=== PATIENT | female | born 1980 | race Asian ===

== ENCOUNTER → 2024-03-15 11:05 | Outpatient (REF) | payer OTHER, SELFPAY ==
[2024-03-15 11:52] LABS: % Basophils 0.5 % (0-2); % Eosinophils 2.4 % (0-6); % Immature Granulocytes 0.3 % (0-0.5); % Lymphocytes 25.7 % (20.5-51.1); % Monocytes 9.2 % (1.7-9.3); % Neutrophils 61.9 % (42.2-75.2); Absolute Eosinophils 0.1 10^3/uL (0-0.7); Absolute Lymphocytes 1.5 10^3/uL (1.2-3.4); Absolute Monocytes 0.5 10^3/uL (0.1-0.6); Absolute Neutrophils 3.6 10^3/uL (1.4-6.5); Hemoglobin 13.7 g/dL (12.0-16.0); Mean Corp Hgb Conc. 32.6 g/dL (33.0-37.0); Mean Corpuscular Hgb 28.5 pg (27.0-31.0); Mean Corpuscular Volume 87.5 fL (81.0-99.0); Mean Platelet Volume 9.5 fL (7.4-10.4); Nucleated Red Blood Cells % 0 %; Platelet Count 255 10^3/uL (130-400); Red Cell Dist. Width 12.8 % (11.5-14.5); White Blood Cell Count 5.8 10^3/uL (4.8-10.8)
[2024-03-15 12:55] LABS: ALT (SGPT) 16 U/L (0-35); AST (SGOT) 21 U/L (14-36); Albumin 4.8 g/dl (3.5-5.0); Alkaline Phosphatase 45 U/L (38-126); Blood Urea Nitrogen 11 mg/dl (7-17); Calcium 9.8 mg/dl (8.4-10.2); Carbon Dioxide 25 mmol/L (22-30); Chloride 105 mmol/L (98-107); Glucose 73 mg/dl (70-99); Potassium 4.8 mmol/L (3.5-5.1); Sodium 136 mmol/L (135-145); Total Bilirubin 0.6 mg/dl (0.2-1.3); Total Protein 7.4 g/dl (6.3-8.2); eGFR > 60.00
[2024-03-15 13:05] LABS: Vitamin D, 25-OH*** 23.2 ng/mL (30-80)
[2024-03-15 13:19] LABS: TSH Reflex To Free T4 2.34 uIU/ml (0.47-4.68)
[2024-03-15 13:23] LABS: Ferritin 46.2 ng/ml (6.24-137)
[2024-03-18 01:44] LABS: IgA 224 mg/dl (70-400)
[2024-03-18 06:39] LABS: Endomysial IgA Antibody Titer <1:10 (<1:10)
== END ==
LOC: RAD 11:05
PROVIDERS: ATTENDING PHYSICIAN Student in an Organized Health Care Education/Training Program
DX: R14.0 Abdominal distension (gaseous) (principal)
CPT/HCPCS: 36415; 74019; 80053; 82306; 82728; 82784; 83516; 83735; 84443; 85025; 86231

== ENCOUNTER → 2024-05-14 12:16 | Outpatient (REF) | payer OTHER, SELFPAY | LOC: RAD 12:16 | PROVIDERS: ATTENDING PHYSICIAN Student in an Organized Health Care Education/Training Program | DX: K59.01 Slow transit constipation (principal) | CPT/HCPCS: 74019 ==

== ENCOUNTER → 2024-05-22 13:41 | Outpatient (REF) | payer OTHER, SELFPAY | LOC: CLAB 13:41 | PROVIDERS: ATTENDING PHYSICIAN Obstetrics & Gynecology Gynecology | DX: N76.0 Acute vaginitis (principal) | CPT/HCPCS: 87070; 87102 ==

== ENCOUNTER → 2024-07-11 16:15 | Outpatient (REF) | payer OTHER, SELFPAY ==
[2024-07-11 16:58] LABS: Iron 81 ug/dl (37-170)
[2024-07-11 17:07] LABS: Percent Saturation 25 % (20-50); Total Iron Binding Capacity 315 ug/dl (265-497)
[2024-07-11 17:34] LABS: Ferritin 48.6 ng/ml (6.24-137)
[2024-07-11 18:05] LABS: Folate 9.8 ng/ml (2.76-20)
== END ==
LOC: REG 16:15
PROVIDERS: ATTENDING PHYSICIAN Internal Medicine Gastroenterology
DX: R14.0 Abdominal distension (gaseous) (principal)
CPT/HCPCS: 36415; 82728; 82746; 83540; 83550; 84446; 84590

== ENCOUNTER → 2024-07-16 06:32 | Day surgery (SDC) | payer OTHER, SELFPAY | LOC: GI 06:32 | PROVIDERS: ATTENDING PHYSICIAN Internal Medicine Gastroenterology | DX: K22.89 Other specified disease of esophagus (principal); K31.89 Other diseases of stomach and duodenum; R76.8 Other specified abnormal immunological findings in serum | CPT/HCPCS: 43239; 88305; 88342 ==

== ENCOUNTER → 2024-10-09 15:45 | Outpatient (REF) | payer OTHER, SELFPAY | LOC: WDC 15:45 | PROVIDERS: ATTENDING PHYSICIAN Student in an Organized Health Care Education/Training Program; FAMILY PHYSICIAN Nurse Practitioner Adult Health | DX: Z00.00 Encounter for general adult medical examination without abnormal findings (principal); Z12.31 Encounter for screening mammogram for malignant neoplasm of breast | CPT/HCPCS: 77063; 77067 ==

== ENCOUNTER → 2024-11-07 16:02 | Outpatient (REF) | payer OTHER, SELFPAY ==
[2024-11-07 18:02] LABS: IgA 195 mg/dl (70-400)
[2024-11-10 01:53] LABS: Endomysial IgA Antibody Titer <1:10 (<1:10)
== END ==
LOC: REG 16:02
PROVIDERS: ATTENDING PHYSICIAN Internal Medicine Gastroenterology; FAMILY PHYSICIAN Student in an Organized Health Care Education/Training Program
DX: R10.30 Lower abdominal pain, unspecified (principal); R76.8 Other specified abnormal immunological findings in serum
CPT/HCPCS: 36415; 74177; 82784; 83516; 86231; Q9967

== ENCOUNTER → 2024-12-04 09:39 | Outpatient (REF) | payer OTHER, SELFPAY ==
[2024-12-12 05:58] LABS: HPV, High Risk Not Detected; HPV, High Risk Source Cervical
== END ==
LOC: CLINIC 09:39
PROVIDERS: ATTENDING PHYSICIAN Obstetrics & Gynecology Gynecology
DX: Z12.4 Encounter for screening for malignant neoplasm of cervix (principal)
CPT/HCPCS: 87624

== ENCOUNTER → 2025-01-07 19:51 | Outpatient (REF) | payer OTHER, SELFPAY | LOC: MRI 3T 19:51 | PROVIDERS: ATTENDING PHYSICIAN Obstetrics & Gynecology Gynecology | DX: T83.32XA Displacement of intrauterine contraceptive device, initial encounter (principal) | CPT/HCPCS: 72197; A9575 ==

== ENCOUNTER 2025-01-10 13:14 | Emergency (ER) | payer SELFPAY ==
[2025-01-10 13:18] VITALS: BP 111/70
[2025-01-10 13:52] LABS: COVID-19 Antigen Negative (Negative)
--- NOTE | 2025-01-10 15:06 | ED.GENMED ---
History of Present Illness
General
Chief Complaint: Cold/Flu/URI Symptoms
Source: patient
Exam Limitations: none
Time Seen by Provider: 01/10/25 14:42
Nursing documentation reviewed up to this point in time: agreed with
History of Present Illness
History of Present Illness:
44 yo female with No clinically significant PMHX presents for hemoptysis and blood in her nasal mucus past 3 days. Has had a cough since having flu-like symptoms a week ago. All symptoms improved but intermittent cough remains. Denies CP, SOB.
Denies fever/chills, n/v/d/c.
Past History
Past History
ED Past Medical History: Other (Pevlic congestion syndroe); Negative Asthma, HTN, Hypercholesterolemia or NIDDM
ED Past Surgical History:
Social History
Tobacco: Non-smoker
Alcohol: None
Drug: None
Personal:
Living: with family
Review of Systems
Review of Systems
Allergies reviewed?: Yes
All Other Systems: ROS reviewed and negative except as documented in HPI and ROS
Constitutional: Denies fever, fatigue or chills
EENT: Reports other (blood in mucus when blowing nose); Denies sore throat
Respiratory: Reports cough and hemoptysis; Denies trouble breathing
Cardiac: Denies chest pain
ABD/GI: Denies abdominal pain, nausea, vomiting or diarrhea
Musculoskeletal: Reports no symptoms
Skin: Reports no symptoms
Neurological: Reports no symptoms
Phy Exam
Physical Exam
Physical Exam:
GENERAL: No acute distress. A&Ox3.
CONSTITUTIONAL: Afebrile.
EYES: clear, conjunctivae normal
ENMT: moist mucus membranes, Pharynx nl, TMs normal
RESPIRATORY: Regular respirations, nonlabored, lungs clear. Intermittent dry cough noted.
CARDIOVASCULAR: Regular rate and rhythm, no murmurs, no rubs.
GI: Soft, nontender, normal BS
MUSCULOSKELETAL: Moves with ease. Well perfused.
SKIN: Warm, dry, pink
PSYCH: Normal mood and affect. Well kept, interactive and appropriate
NEUROLOGIC: Awake, alert and oriented. No focal neurological deficits
Course
Orders/Labs/Results
Orders:
Orders
01/10/25 13:22
Electrocardiogram (*1) Urgent
Reason for Study: Chest Pain
EKG- Treatment ONCE
Chest [CR Chest - 2 Views ] Urgent
Comment:
Reason For Exam: cough, hemoptysis
01/10/25 13:30
COVID-19 Antigen Urgent
Source: Nasal Swab
Influenza A+B Rapid Molecular Urgent
ALEJA Source: Nasal Swab
Specimen Description:
Vital Signs
Initial and Last Documented VS:
Initial Vital Signs
Temp Pulse Resp BP Pulse Ox
98.6 F 95 18 111/70 99
01/10/25 13:18 01/10/25 13:18 01/10/25 13:18 01/10/25 13:18 01/10/25 13:18
Last Documented Vital Signs
Temp Pulse Resp BP Pulse Ox
98.6 F 95 18 111/70 99
01/10/25 13:18 01/10/25 13:18 01/10/25 13:18 01/10/25 13:18 01/10/25 13:18
MDM/Problems Addressed
Differential Diagnosis Includes:
Viral uri,
MDM/Problems Addressed:
44 yo female with No clinically significant PMHX presents for hemoptysis and blood in her nasal mucus past 3 days. Has had a cough since having flu-like symptoms a week ago. All symptoms improved but intermittent cough remains. Denies CP, SOB.
Denies fever/chills, n/v/d/c.
Afebrile, NAD
Pt has pictures on phone of expectorated mucus and mucus from nose blowing both are clear mucus with streaks or spots of dark blood. Most likely from irritation of nasal/airway passages from viral illness
3:00 p.m.
CXR NAD
Influenza neg
Covid neg
*Critical Care Note
Total Time (30-74mins, 75-104mins- exclusive of procedures): Not Applicable
ED Attending Note
-
Portions of this chart may have been created with voice recognition software.� Occasional wrong word or��sound alike� substitutions may have occurred due to the inherent limitations of voice recognition software.
Discharge Plan
Departure
Patient Disposition: Home (Routine Discharge)
Date of Disposition: 01/10/25
Time of Disposition: 15:01
Patient with high blood pressure during this ER visit?: No
Condition: Good
Covid-19: Negative COVID-19
Discharge Problem:
Cough with hemoptysis, URI (upper respiratory infection)
Instructions: Viral Upper Respiratory Infection, Adult (DC), Coughing up blood
Prescriptions:
No Action
guaifenesin [Mucinex] 600 mg tablet extended release 12hr
600 mg PO BID PRN (Reason: cough) Qty: 14 0RF
prednisone 10 mg Tablet
See Rx Instructions .ROUTE .COMPLEX Qty: 30 0RF
Rx Instructions:
Take By Mouth:
40 mg daily x3 days, 30 mg daily x3 days,
20 mg daily x3 days, 10 mg daily x3 days.
Referrals:
Jami Machado MD [Family Provider] - As needed
Activity Restrictions/Additional Instructions:
As we discussed, nothing worrisome in your workup here today.
If you still no blood in your mucus in 10 days, follow up with your provider at the [facility].
If you start coughing up karan red blood in larger amounts seek medical care immediately.
Interventions
Interventions:
*Risk Screen - Suicide Last Done: 01/10/25 13:18
*General Assessment Last Done: 01/10/25 13:18
*Neglect/Abuse Screening Last Done: 01/10/25 13:18
ED- Fall Risk Assessment Last Done: 01/10/25 15:26
*ED COVID-19 Vaccine History Last Done: 01/10/25 13:18
*Nursing Disposition Last Done: 01/10/25 15:26
ED- Pulmonary Assessment Last Done: 01/10/25 15:26
Discharge Date and Time
Discharge Date/Time: 01/10/25 15:27
Print Language: MALAGASY
== END 2025-01-10 15:27 | disposition home or self-care (01) ==
LOC: EMR 13:14
PROVIDERS: Emergency Medicine; EMERGENCY PHYSICIAN Emergency Medicine; FAMILY PHYSICIAN Student in an Organized Health Care Education/Training Program
DX: R05.9 Cough, unspecified (principal); R04.2 Hemoptysis; J06.9 Acute upper respiratory infection, unspecified
CPT/HCPCS: 99283; 71046; 87502; 87811; 93005

== ENCOUNTER → 2025-02-14 11:33 | Outpatient (REF) | payer OTHER, SELFPAY ==
[2025-02-14 12:37] LABS: Hematocrit 41.1 % (37.0-47.0); Hemoglobin 13.8 g/dL (12.0-16.0); Mean Corp Hgb Conc. 33.6 g/dL (33.0-37.0); Mean Corpuscular Hgb 28.9 pg (27.0-31.0); Mean Platelet Volume 9.9 fL (7.4-10.4); Platelet Count 261 10^3/uL (130-400); Red Blood Cell Count 4.78 10^6/uL (4.20-5.40); White Blood Cell Count 5.2 10^3/uL (4.8-10.8)
[2025-02-14 13:09] LABS: HCG, Serum Qualitative Screen Negative
[2025-02-14 13:47] LABS: ALT (SGPT) 18 U/L (0-35); AST (SGOT) 19 U/L (14-36); Albumin 4.8 g/dl (3.5-5.0); Alkaline Phosphatase 53 U/L (38-126); Blood Urea Nitrogen 13 mg/dl (7-17); Calcium 9.5 mg/dl (8.4-10.2); Carbon Dioxide 25 mmol/L (22-30); Chloride 106 mmol/L (98-107); Glucose 98 mg/dl (70-99); Potassium 4.5 mmol/L (3.5-5.1); Sodium 140 mmol/L (135-145); Total Bilirubin 0.8 mg/dl (0.2-1.3); Total Protein 7.3 g/dl (6.3-8.2); eGFR > 60.00
== END ==
LOC: REG 11:33
PROVIDERS: ATTENDING PHYSICIAN Obstetrics & Gynecology Gynecology
DX: T83.32XA Displacement of intrauterine contraceptive device, initial encounter (principal)
CPT/HCPCS: 36415; 80053; 84703; 85027; 86850; 86900; 86901

== ENCOUNTER 2025-02-21 06:09 | Day surgery (SDC) | payer OTHER, SELFPAY ==
[2025-02-21] VITALS (14 sets, daily range): BP systolic 104–149; BP diastolic 61–96; BMI 22.5; BMI 22.6
[2025-02-21 10:50] LABS: HCG, Urine Qualitative Screen Negative
[2025-02-21] MEDS: NORMOSOL-R/PLASMALYTE-A 1000 IV (10:57)
[2025-02-21] MEDS: DILAUDID 0.25 MG IV (14:44)
[2025-02-21] MEDS: ROBITUSSIN AC 10 ML PO (15:00)
--- NOTE | 2025-02-21 15:00 | SUR.PHASEI ---
Pt arrived from OR, non productive cough. States throat feels scratchy. Asking for water. Water provided, continues with cough. Lungs diminished. Sat's 100% on RA. Dr. Calix notified. Robitussin with codeine offered.
[2025-02-21] MEDS: ROXICODONE ORAL SOLUTION 5 MG PO (16:10)
[2025-02-21] MEDS: ANESTHETIC LOZENGE 1 LOZENGE PO (16:38)
--- NOTE | 2025-02-21 17:59 | W.PN.GYN.DG ---
Today's Communication / Plan
-
CXR
Serial h/h
IVF
advance diet
Cough meds
Po pain meds
Assessment / Plan
-
Assessment:
Post op cough
Plan:
CXR
Serial h/h
IVF
advance diet
Cough meds
Po pain meds
Subjective / Objective Data
Subjective Data
Pt having dry cough since surgery - felt to be from intubation but robitussin and cepochol losenge not helping
Objective Data
Vital Signs
Temp Pulse Resp BP Pulse Ox
98.9 F 96 20 134/96 100
02/21/25 14:10 02/21/25 17:15 02/21/25 17:15 02/21/25 17:15 02/21/25 17:15
Intake & Output
02/20/25 02/21/25 02/22/25
06:59 06:59 06:59
Intake Total 100 / 100
Output Total 700 / 700
Balance -600 / -600
Intake:
IV fluids (Total) 100 / 100
normosol 100 / 100
Output:
Urine, Thomas 700 / 700
Physical Exam
-
Cardiac: Regular rate & rhythm
Lungs: Clear: Bilateral
Abdomen: Soft and Nontender
Bowel Sounds: Normal
Extremities: No Calf Tenderness and No Edema
Other Findings:
small amt blood on bandaid from umbilicus
[2025-02-21] MEDS: D5/0.9% SODIUM CHLORIDE 1000 IV (19:43)
--- NOTE | 2025-02-21 20:02 | PTCARENOTE ---
Pt arrived to [facility] at 1930 from [facility] in a wheelchair. Pt walked to bed w/o incident. Pt 99% on RA. LLQ steri strip with bandaid C/D/I. Middle abd with gauze and bandaid with minimal drainage sanguineous. Pt oriented to room and call tavares within
reach. Bed locked and in lowest position. Care ongoing.
[2025-02-21 21:04] LABS: Hematocrit 41.7 % (37.0-47.0); Hemoglobin 14.4 g/dL (12.0-16.0)
[2025-02-21] MEDS: BENADRYL 25 MG PO (22:38)
[2025-02-21] MEDS: MOTRIN 800 MG PO (23:11)
[2025-02-22 03:30] VITALS: BP 128/75
[2025-02-22 03:54] LABS: Hematocrit 35.3 % (37.0-47.0); Hemoglobin 12.3 g/dL (12.0-16.0)
[2025-02-22] MEDS: D5/0.9% SODIUM CHLORIDE 1000 IV (04:53)
--- NOTE | 2025-02-22 06:20 | W.PN.GYN.DG ---
Today's Communication / Plan
-
Ambulate
Heplock IV
f/u h/h at 9am
Plan d/c to home
Assessment / Plan
-
Assessment:
POD # 1 - adm for 23 hour obs for post anesthesia cough
Plan:
Ambulate
Heplock IV
f/u h/h at 9am
Plan d/c to home
Subjective / Objective Data
Subjective Data
PT doing well - cough improved - good pain control
Objective Data
Vital Signs
Temp Pulse Resp BP Pulse Ox
97.8 F 86 16 128/75 100
02/22/25 03:30 02/22/25 03:30 02/22/25 03:30 02/22/25 03:30 02/22/25 03:30
Intake & Output
02/20/25 02/21/25 02/22/25
06:59 06:59 06:59
Intake Total 1830 / 1830
Output Total 700 / 700
Balance 1130 / 1130
Intake:
Oral fluids 480 / 480
IV fluids (Total) 1350 / 1350
normosol 100 / 100
Output:
Urine, Thomas 700 / 700
Other:
Number of approximated MODERATE 3
amounts of urine
Physical Exam
-
Cardiac: Regular rate & rhythm
Lungs: Clear: Bilateral
Abdomen: Soft and Other
Bowel Sounds: Normal
Extremities: No Calf Tenderness and No Edema
Incision: Clean, Dry, Intact and Other (small amt blood on bandaid )
Other Findings:
Appropriately tender
--- NOTE | 2025-02-22 06:27 | W.DS.TRANS ---
DC Summary - Criminal Legal Assistant
-
Discharge Instructions:
Sleep Apnea Risk Low
Discharge Diagnosis/Procedures Laparaocopy
Diet No restrictions
Activity No strenuous activity
Additional Activity Meaning no lifting heavier than 20 pounds
Driving Restrictions No driving for 24 hours
Bathing Restrictions OK to Shower
Instructions:
Stand-Alone Forms:
Changes to Home Medications: No
Discharge Medications:
DC Medications w/original date entered in [facility]
No Meds [No Current Medications] 02/18/25
Home Medication Changes
Pending Results: No
[2025-02-22 07:25] VITALS: BP 124/79
[2025-02-22] MEDS: PERCOCET 5/325 1 TABLET PO (08:43)
[2025-02-22 09:21] LABS: Hematocrit 36.5 % (37.0-47.0); Hemoglobin 12.4 g/dL (12.0-16.0)
--- NOTE | 2025-02-22 11:10 | CM ---
Pt discharged prior to CM completing IA
per chart review, no dc needs
== END 2025-02-22 10:58 | disposition home or self-care (01) ==
LOC: SDS 06:09
PROVIDERS: ATTENDING PHYSICIAN Obstetrics & Gynecology Gynecology
DX: T83.32XA Displacement of intrauterine contraceptive device, initial encounter (principal); Y76.2 Prosthetic and other implants, materials and accessory obstetric and gynecological devices associated with adverse incidents
CPT/HCPCS: 58301; 71046; 81025; 85014; 85018

== ENCOUNTER → 2025-06-03 15:29 | Outpatient (REF) | payer OTHER, SELFPAY | LOC: CLINIC 15:29 | PROVIDERS: ATTENDING PHYSICIAN Physician Assistant Medical | DX: M25.531 Pain in right wrist (principal); M25.532 Pain in left wrist | CPT/HCPCS: 73110 ==

== ENCOUNTER → 2025-06-11 10:19 | Outpatient (REF) | payer OTHER, SELFPAY | LOC: WDC 10:19 | PROVIDERS: ATTENDING PHYSICIAN Physician Assistant Medical | DX: N64.4 Mastodynia (principal) | CPT/HCPCS: 76642; 77062; 77066 ==

== ENCOUNTER → 2025-06-23 17:02 | Outpatient (REF) | payer OTHER, SELFPAY | LOC: CLINIC 17:02 | PROVIDERS: ATTENDING PHYSICIAN Internal Medicine Gastroenterology | DX: R14.0 Abdominal distension (gaseous) (principal) | CPT/HCPCS: 83013 ==

== ENCOUNTER → 2025-06-30 13:47 | Outpatient (REF) | payer OTHER, SELFPAY ==
[2025-07-03 18:45] LABS: H. pylori Antigen, Fecal Negative (Negative)
[2025-07-05 16:02] LABS: Pancreatic Elastase, Fecal >800 ug/g (>=100)
[2025-07-05 16:13] LABS: Calprotectin, Fecal 12 ug/g (<=49)
== END ==
LOC: CLINIC 13:47
PROVIDERS: FAMILY PHYSICIAN Internal Medicine Cardiovascular Disease
DX: R14.0 Abdominal distension (gaseous) (principal); R19.7 Diarrhea, unspecified
CPT/HCPCS: 82653; 82705; 83993; 87324; 87338; 87449; 89055